=== PATIENT | female | born 1990 | race Hispanic/Latino ===

== ENCOUNTER 2019-04-22 20:34 | Emergency (ER) | payer OTHER ==
[2019-04-22 21:28] LABS: APPEARANCE,URINE SL CLOUDY (CLEAR); BILIRUBIN,URINE NEGATIVE (NEGATIVE); COLOR,URINE YELLOW (YELLOW); GLUCOSE, URINE (UA) NEGATIVE (NEGATIVE); KETONES,URINE NEGATIVE (NEGATIVE); LEUKOCYTE ESTERASE ,URINE NEGATIVE (NEGATIVE); NITRATE,URINE NEGATIVE (NEGATIVE); OCCULT BLOOD,URINE NEGATIVE (NEGATIVE); PROTEIN,URINE NEGATIVE (NEGATIVE); UROBILINOGEN,URINE 0.2 mg/dL (0.2-1.0)
[2019-04-22 21:33] LABS: RAPID GROUP A STREP NEGATIVE (NEGATIVE)
[2019-04-22 21:35] LABS: HCG,QUAL RESULT NEGATIVE (NEGATIVE)
[2019-04-22 21:37] LABS: AMORPHOUS SEDIMENT,UR Few /LPF (None Seen); BACTERIA,URINE Few /HPF (None Seen); MUCUS,URINE Few LPF (None Seen); RBC,URINE 0-1 /HPF (0-1); SQUAMOUS EPITHELIAL CELL,UR Few /HPF (0-2)
== END 2019-04-22 22:17 | disposition home or self-care (01) ==
LOC: EDH 20:34
DX: J00 Acute nasopharyngitis [common cold] (principal)
CPT/HCPCS: 71045; 81001; 81025; 87804; 87880